=== PATIENT | male | born 1965 | race African-American/Black ===

== ENCOUNTER 2017-02-09 04:04 | Emergency (ER) | payer MEDICAID ==
[~2017-02-09] VITALS: Ht 175.3 cm; Wt 96.0 kg
[2017-02-09] MEDS: KETOROLAC 60MG/2ML VIAL IM ONE (06:59)
[2017-02-09] MEDS: ONDANSETRON 4MG ODT PO ONE (07:00)
[2017-02-09] MEDS: HYDROCODONE/ACETAMINOPHEN 5/325MG TABLET PO ONE (07:00)
[2017-02-09 08:56] LABS: CLARITY URINE CLEAR (CLEAR); COLOR URINE YELLOW (YELLOW); GLUCOSE URINE NEGATIVE (NEGATIVE); KETONES URINE NEGATIVE (NEGATIVE); LEUKOCYTE ESTERASE URINE NEGATIVE (NEGATIVE); NITRITE URINE NEGATIVE (NEGATIVE); OCCULT BLOOD URINE NEGATIVE (NEGATIVE); PROTEIN URINE NEGATIVE (NEGATIVE); SPECIFIC GRAVITY URINE 1.033 (1.005-1.030); UROBILINOGEN URINE 0.2 E.U./dL (0.2-1.0)
[2017-02-09 09:35] VITALS: BP 110/68
== END 2017-02-09 10:05 | disposition home or self-care (01) ==
LOC: ER 04:05
DX: G89.29 Other chronic pain (principal); M54.5 Low back pain; K59.00 Constipation, unspecified; E78.00 Pure hypercholesterolemia, unspecified; E11.9 Type 2 diabetes mellitus without complications; F17.200 Nicotine dependence, unspecified, uncomplicated
CPT/HCPCS: 74000; 81003; 96372; 99285; J1885; Q0162; Z7610

== ENCOUNTER 2020-08-02 05:06 | Emergency (ER) | payer SELFPAY ==
[~2020-08-02] VITALS: Ht 175.3 cm; Wt 100.0 kg
[2020-08-02] MEDS ORDERED: PREDNISONE 20MG TABLET PO ONE (06:00)
[2020-08-02] MEDS ORDERED: ALBUTEROL (0.5%) 2.5MG/0.5ML NEB HHN ONE (06:00)
[2020-08-02] MEDS ORDERED: KETOROLAC 30MG/ML VIAL IV STA (06:25)
[2020-08-02 06:31] VITALS: BP 126/79
[2020-08-02 06:46] LABS: BASOPHILS % 0.6 % (0.0-2.0); EOSINOPHILS % 6.5 % (0.0-5.0); HEMATOCRIT. 42.8 % (42.0-52.0); HEMOGLOBIN. 14.1 g/dL (14.0-18.0); LYMPHOCYTES % 36.6 % (20.0-50.0); MEAN CORPUSCULAR HEMOGLOBIN 27.4 pg (28.0-32.0); MEAN CORPUSCULAR VOLUME 83.2 fL (80.0-94.0); MONOCYTES % 10.2 % (2.0-8.0); NEUTROPHILS % 46.1 % (40.0-76.0); PLATELET 147 x1000/uL (130-400); RED BLOOD CELL COUNT 5.15 mill/uL (4.7-6.1); RED CELL DISTRIBUTION WIDTH 13.8 % (11.6-14.6)
[2020-08-02 06:52] LABS: CHLORIDE 109 mEq/L (98-107)
[2020-08-02 06:55] LABS: CLARITY URINE CLEAR (CLEAR); COLOR URINE YELLOW (YELLOW); KETONES URINE NEGATIVE (NEGATIVE); LEUKOCYTE ESTERASE URINE NEGATIVE (NEGATIVE); NITRITE URINE NEGATIVE (NEGATIVE); OCCULT BLOOD URINE NEGATIVE (NEGATIVE); PH URINE 6.5 (4.5-8.0); PROTEIN URINE NEGATIVE (NEGATIVE); UROBILINOGEN URINE 0.2 E.U./dL (0.2-1.0)
[2020-08-02 07:22] LABS: PROTHROMBIN TIME 10.3 sec (9.6-11.0)
[2020-08-02] MEDS ORDERED: IBUP-2028 MT (07:27)
[2020-08-02] MEDS ORDERED: ALBU6.7H9 INH (07:27)
[2020-08-02] MEDS ORDERED: CYCL10TA7 MT (07:27)
== END 2020-08-02 08:04 | disposition home or self-care (01) ==
LOC: ER 05:06
DX: J45.909 Unspecified asthma, uncomplicated (principal); M54.30 Sciatica, unspecified side; F17.290 Nicotine dependence, other tobacco product, uncomplicated; Z71.6 Tobacco abuse counseling
CPT/HCPCS: 36415; 71045; 74176; 80053; 81003; 83690; 84484; 85025; 85610; 93005; 94640; 96374; 99285; 99406; J1885; J7512; Z7610

== ENCOUNTER 2020-08-08 16:40 | Inpatient (IN) | payer SELFPAY ==
[~2020-08-08] VITALS: Ht 172.7 cm; Wt 100.2 kg
[~2020-08-08 16:40] MED LIST: ALBU6.7H9 INH; CYCL10TA7 MT; IBUP-2028 MT
[2020-08-08] MEDS ORDERED: KETOROLAC 60MG/2ML VIAL IM ONE (18:15)
[2020-08-08] MEDS ORDERED: SODIUM CHLORIDE 0.9% 1,000 ML IV ONE (18:45)
[2020-08-08 19:15] LABS: CHLORIDE 106 mEq/L (98-107)
[2020-08-08 19:16] LABS: BASOPHILS % 0.7 % (0.0-2.0); EOSINOPHILS % 9.9 % (0.0-5.0); HEMATOCRIT. 39.4 % (42.0-52.0); HEMOGLOBIN. 13.5 g/dL (14.0-18.0); LYMPHOCYTES % 33.8 % (20.0-50.0); MEAN CORPUSCULAR HEMOGLOBIN 28.2 pg (28.0-32.0); MEAN CORPUSCULAR VOLUME 82.2 fL (80.0-94.0); MEAN PLATELET VOLUME 9.1 fl (7.4-10.4); MONOCYTES % 13.3 % (2.0-8.0); NEUTROPHILS % 42.3 % (40.0-76.0); PLATELET 149 x1000/uL (130-400); RED CELL DISTRIBUTION WIDTH 13.5 % (11.6-14.6)
[2020-08-08] MEDS ORDERED: IOHEXOL-300 100 ML BOTTLE ONE (22:10)
[2020-08-08] MEDS ORDERED: MORPHINE SULFATE 4 MG/ML CPJ (NOT FOR IM USE) IV ONE (22:15)
[2020-08-08] MEDS ORDERED: PIPERACILLIN/TAZ 3.375G PREMIX 50 ML IV NR (22:15)
[2020-08-08] MEDS ORDERED: VANCOMYCIN 750 MG PREMIX 150 ML IV SCH (22:15)
[2020-08-08] MEDS ORDERED: PIPERACILLIN/TAZOBACTAM 3.375GM/50ML PREMIX IV ONE (22:15)
[2020-08-08] MEDS ORDERED: ACETAMINOPHEN 325MG TABLET PO ONE (23:00)
[2020-08-09] MEDS ORDERED: HYDRALAZINE 20MG/ML VIAL IV PRN (08:00)
[2020-08-09] MEDS ORDERED: DIPHENHYDRAMINE 50MG/ML VIAL IV PRN (08:00)
[2020-08-09] MEDS ORDERED: LORAZEPAM 2MG/ML CPJ IV PRN (08:00)
[2020-08-09] MEDS ORDERED: IPRATROPIUM/ALBUTEROL 0.5-3(2.5)MG/3ML NEB HHN PRN (08:00)
[2020-08-09] MEDS ORDERED: DOCUSATE SODIUM 100MG CAPSULE PO PRN (08:00)
[2020-08-09] MEDS ORDERED: ACETAMINOPHEN 325MG TABLET PO PRN (08:00)
[2020-08-09] MEDS ORDERED: GUAIFENESIN 200MG/10ML SUGAR FREE UDC PO PRN (08:00)
[2020-08-09] MEDS ORDERED: ONDANSETRON HCL 4MG/2ML INJ IV PRN (08:00)
[2020-08-09] MEDS ORDERED: MORPHINE SULFATE 2 MG/ML CPJ (NOT FOR IM USE) IV PRN (08:00)
[2020-08-09] MEDS ORDERED: CLONIDINE 0.1MG TABLET PO PRN (08:00)
[2020-08-09] MEDS ORDERED: MAGNESIUM/ALUMINUM HYDROXIDE/SIMETHICONE 30ML UDC PO PRN (08:00)
[2020-08-09 08:17] VITALS: BP 118/69
[2020-08-09] MEDS ORDERED: ENOXAPARIN 40MG/0.4ML SYR SUBCUT SCH (09:00)
[2020-08-09] MEDS: HYDROCODONE/ACETAMINOPHEN 5/325MG TABLET PO PRN ×2 (09:10→16:20)
[2020-08-09] MEDS ORDERED: SODIUM CHLORIDE 0.9% INJ 3ML FLUSH IVF SCH (14:00)
[2020-08-09 14:01] LABS: CLARITY URINE CLEAR (CLEAR); COLOR URINE YELLOW (YELLOW); KETONES URINE NEGATIVE (NEGATIVE); LEUKOCYTE ESTERASE URINE NEGATIVE (NEGATIVE); NITRITE URINE NEGATIVE (NEGATIVE); OCCULT BLOOD URINE NEGATIVE (NEGATIVE); PH URINE 7.5 (4.5-8.0); PROTEIN URINE NEGATIVE (NEGATIVE); SPECIFIC GRAVITY URINE 1.022 (1.005-1.030); UROBILINOGEN URINE 0.2 E.U./dL (0.2-1.0)
[2020-08-09 14:22] LABS: *COCAINE SCREEN URINE NEGATIVE (NEGATIVE); METHADONE URINE SCREEN NEGATIVE (NEGATIVE); OPIATES URINE SCREEN PRESUMTIVE POSITIVE (NEGATIVE)
[2020-08-09 14:23] LABS: *AMPHETAMINES SCREEN URINE NEGATIVE (NEGATIVE); *BARBITURATES SCREEN URINE NEGATIVE (NEGATIVE); *BENZODIAZEPINES SCREEN URINE NEGATIVE (NEGATIVE); CANNABINOID URINE SCREEN PRESUMTIVE POSITIVE (NEGATIVE)
[2020-08-09 14:49] LABS: PHENCYCLIDINE URINE SCREEN NEGATIVE (NEGATIVE)
[2020-08-09 16:23] LABS: CREATINE KINASE 863 IU/L (39-308)
[2020-08-09 16:24] LABS: CREATINE KINASE MB FRACTION 3.5 ng/mL (0.5-3.6)
[2020-08-09 17:42] VITALS: BP 140/68
== END 2020-08-09 18:00 | disposition home or self-care (01) | DRG 114 ==
LOC: ER 16:40 → 6EST 08-09 00:50 → EDBEDREQ 08-09 01:25 → EDBEDREQDT 08-09 01:25 → EDBEDREQTM 08-09 01:25 → ENRESERV 08-09 07:16
PROVIDERS: ADMIT Internal Medicine; ATTEND Internal Medicine
DX: K04.7 Periapical abscess without sinus (principal); E66.9 Obesity, unspecified; K02.9 Dental caries, unspecified; F17.210 Nicotine dependence, cigarettes, uncomplicated; Z68.33 Body mass index [BMI] 33.0-33.9, adult
CPT/HCPCS: 36415; 70487; 80048; 80305; 81003; 82550; 82553; 83605; 84484; 85025; 93970; 99285; J1650; J1885; J2270; J2543; J3370; J7030; Q9967

== ENCOUNTER 2020-10-22 05:18 | Emergency (ER) | payer OTHER ==
[~2020-10-22] VITALS: Ht 175.3 cm; Wt 100.0 kg
[2020-10-22 05:31] VITALS: BP 145/67
== END 2020-10-22 06:44 | disposition left against medical advice (07) ==
LOC: ER 05:18
DX: Z53.21 Procedure and treatment not carried out due to patient leaving prior to being seen by health care provider (principal); Z98.890 Other specified postprocedural states

== ENCOUNTER 2021-02-28 22:13 | Emergency (ER) | payer OTHER ==
[~2021-02-28] VITALS: Ht 175.3 cm; Wt 114.0 kg
[2021-02-28] MEDS ORDERED: ASPIRIN 81MG TABLET PO ONE (23:15)
[2021-02-28] MEDS ORDERED: NITROGLYCERIN 0.4MG TABLET SL SL PRN (23:15)
[2021-02-28 23:43] LABS: BASOPHILS % 0.8 % (0.0-2.0); EOSINOPHILS % 3.5 % (0.0-5.0); HEMATOCRIT. 43.3 % (42.0-52.0); HEMOGLOBIN. 14.2 g/dL (14.0-18.0); LYMPHOCYTES % 26.5 % (20.0-50.0); MEAN CORPUSCULAR HEMOGLOBIN 27.4 pg (28.0-32.0); MEAN CORPUSCULAR VOLUME 83.7 fL (80.0-94.0); MEAN PLATELET VOLUME 9.4 fl (7.4-10.4); MONOCYTES % 8.5 % (2.0-8.0); NEUTROPHILS % 60.7 % (40.0-76.0); PLATELET 155 x1000/uL (130-400); RED BLOOD CELL COUNT 5.17 mill/uL (4.7-6.1); RED CELL DISTRIBUTION WIDTH 13.6 % (11.6-14.6)
[2021-02-28] MEDS ORDERED: HYDROCODONE/ACETAMINOPHEN 5/325MG TABLET PO ONE (23:45)
[2021-02-28] MEDS ORDERED: KETOROLAC 60MG/2ML VIAL IM ONE (23:45)
[2021-02-28 23:46] LABS: CHLORIDE 107 mEq/L (98-107)
[2021-03-01] MEDS ORDERED: OXYC-100 MT (00:14)
[2021-03-01] MEDS ORDERED: AMOX-494 MT (00:14)
[2021-03-01 00:27] VITALS: BP 129/85
== END 2021-03-01 00:27 | disposition home or self-care (01) ==
LOC: ER 22:13
DX: R73.9 Hyperglycemia, unspecified (principal); K08.89 Other specified disorders of teeth and supporting structures; R51.9 Headache, unspecified; F12.10 Cannabis abuse, uncomplicated
CPT/HCPCS: 36415; 71045; 80053; 83880; 84484; 85025; 93005; 96372; 99283; 99284